=== PATIENT | female | born 1980 | race Caucasian/White ===

== ENCOUNTER → 2017-03-22 | Outpatient (CLI) | payer BC ==
--- NOTE | 2017-03-22 08:50 | KCIC ---
PROCEDURE Thyroid sonogram. HISTORY Thyroid nodule follow-up. TECHNIQUE Sonographic imaging of the thyroid was performed. COMPARISON 08/31/2016 FINDINGS The right thyroid lobe measures 5.0 x 1.6 x 1.9 cm. The left thyroid lobe measures 4.2 x 1.4 x 2.2 cm. The isthmus measures 4.2 mm. There is a solid hypoechoic nodule within the mid right thyroid lobe measuring 6 x 5 x 3 mm, previously measuring 6 x 6 x 4 mm. No new thyroid lesion is seen. IMPRESSION 1. 6 mm right thyroid nodule, stable to minimally decreased compared to the prior study when allowing for differences in measurement technique. 2. No new thyroid lesion. 3. Note is made that the thyroid gland is within normal limits in size. This appears decreased compared to the prior study, a component of which may be due to differences in measurement technique. Electronically signed by: Areli Holman (Mar 22, 2017 08:49:19)
== END | disposition home or self-care (01) ==
LOC: KCIC US 07:53
PROVIDERS: ATTEND Internal Medicine Endocrinology, Diabetes & Metabolism
DX: E04.1 Nontoxic single thyroid nodule (principal)
CPT/HCPCS: 76536